=== PATIENT | female | born 1955 ===

== ENCOUNTER 2024-07-09 15:05 | Inpatient (IN) | payer MEDICARE, OTHER ==
[~2024-07-09] VITALS: Ht 162.6 cm; Wt 69.9 kg
[2024-07-09 15:35] VITALS: BP 175/94; TEMP 97.7
[2024-07-09 16:09] VITALS: BP 175/94; TEMP 97.7
[2024-07-10 00:46] VITALS: BP 127/66; TEMP 98; O2SAT 94
[2024-07-10] MEDS ORDERED: APIX5TAB4 PO (01:01)
[2024-07-10] MEDS ORDERED: GABA100C PO (01:49)
[2024-07-10] MEDS ORDERED: LEVO50TA8 PO (01:49)
[2024-07-10] MEDS ORDERED: DICL100G31 TP (01:49)
[2024-07-10] MEDS ORDERED: CHOL100045 PO (01:49)
[2024-07-10] MEDS ORDERED: ANAS1TAB50 PO (01:49)
[2024-07-10] MEDS ORDERED: ATOR40TA PO (01:49)
[2024-07-10] MEDS ORDERED: ASPI81TA31 PO ×2 (01:49)
[2024-07-10] MEDS ORDERED: PRED5DRO4 EACHEYE (01:49)
[2024-07-10] MEDS ORDERED: TIMO5DRO35 EACHEYE (01:49)
[2024-07-10] MEDS ORDERED: OLME20TA13 PO (01:49)
[2024-07-10] MEDS ORDERED: CYAN-51 PO (01:49)
[2024-07-10] MEDS ORDERED: DULO60CA45 PO (01:49)
[2024-07-10] MEDS ORDERED: MAGN400C PO (01:49)
[2024-07-10 05:11] VITALS: BP 159/57; TEMP 98.8; O2SAT 93
[2024-07-10 08:00] VITALS: TEMP 98.1
[2024-07-10] MEDS: HYDROCODONE/APAP 5-325MG TABLET PO PRN (08:22)
[2024-07-10] MEDS: ANASTROZOLE 1 MG TABLET PO SCH ×2 (09:00→20:23)
[2024-07-10] MEDS: prednisoLONE ACET 1% OPHT DROP 5 ML BOTTLE EACHEYE SCH (09:00)
[2024-07-10] MEDS ORDERED: Medication Not On Formulary EA (Olmesartan Medoxomil (Benicar) 20 MG) PO SCH (09:00)
[2024-07-10] MEDS: MAGNESIUM OXIDE 400 MG TABLET PO SCH ×2 (09:00→20:18)
[2024-07-10] MEDS ORDERED: APIXABAN 10 MG PO SCH (09:00)
[2024-07-10] MEDS: CYANOCOBALAMIN 1,000 MCG TABLET PO SCH (09:44)
[2024-07-10] MEDS: GABAPENTIN 100 MG CAPSULE PO SCH (09:44)
[2024-07-10] MEDS: ASPIRIN 81 MG TAB.CHEW PO SCH (09:44)
[2024-07-10] MEDS: LOSARTAN POTASSIUM 50 MG TABLET PO SCH (09:45)
[2024-07-10] MEDS: LEVOTHYROXINE SODIUM 50 MCG TABLET PO SCH (09:46)
[2024-07-10] MEDS: DULOXETINE 60 MG CAPSULE.DR PO SCH (09:54)
[2024-07-10] MEDS: APIXABAN 5 MG TABLET PO SCH (12:14)
[2024-07-10 16:40] VITALS: TEMP 97.9
[2024-07-10 20:00] VITALS: BP 137/42; TEMP 98.1; O2SAT 95
[2024-07-10] MEDS: ATORVASTATIN 40 MG TABLET PO SCH (20:16)
[2024-07-11] MEDS: HYDROCODONE/APAP 5-325MG TABLET PO PRN (00:07)
[2024-07-11 06:00] VITALS: TEMP 98
[2024-07-11 07:49] VITALS: BP 142/74; TEMP 98.8; O2SAT 96
[2024-07-11 08:52] LABS: BASOPHILS # (AUTO) 0.1 K/UL (0.0-0.2); DIFFERENTIAL COMMENT 1; EOSINOPHILS # (AUTO) 0.2 K/uL (0.0-0.7); EOSINOPHILS % (AUTO) 3.9 % (0.0-7.0); HEMATOCRIT 27.6 % (31.2-41.9); HEMOGLOBIN 9.2 g/dL (10.9-14.3); LYMPHOCYTES # (AUTO) 1.5 K/uL (0.8-4.8); LYMPHOCYTES % (AUTO) 26.8 % (20.5-51.5); MEAN CORPUSCULAR HEMOGLOBIN 29.5 uug (24.7-32.8); MEAN CORPUSCULAR HGB CONC 33 g/dL (32.3-35.6); MEAN CORPUSCULAR VOLUME 88.9 fL (75.5-95.3); MONOCYTES # (AUTO) 0.5 K/uL (0.1-1.30); MONOCYTES % (AUTO) 8.3 % (0.0-11.0); NEUTROPHILS # (AUTO) 3.3 K/uL (1.8-8.9); PLATELET COUNT (AUTO) 352 K/uL (179-408); RED CELL DISTRIBUTION WIDTH 14.5 % (12.3-17.7); WHITE BLOOD COUNT (AUTO) 5.6 K/uL (3.8-11.8)
[2024-07-11 09:15] LABS: ALANINE AMINOTRANSFERASE 136 U/L (14-59); ALBUMIN 2.7 g/dL (3.4-5.0); ALKALINE PHOSPHATASE 260 U/L (50-136); ASPARTATE AMINOTRANSFERASE 137 U/L (15-37); BILIRUBIN,TOTAL 0.8 mg/dL (0.2-1.0); CALCIUM 8.9 mg/dL (8.5-10.1); CARBON DIOXIDE 28 mmol/L (21-32); CHLORIDE 105 mmol/L (98-107); CREATININE 0.8 mg/dL (0.6-1.3); GLUCOSE 162 mg/dL (74-106); MAGNESIUM 2.1 mg/dL (1.8-2.4); PHOSPHOROUS 4.6 mg/dL (2.5-4.9); POTASSIUM 4.3 mmol/L (3.5-5.1); SODIUM SERUM 141 mmol/L (136-145); TOTAL PROTEIN, SERUM 6.6 g/dL (6.4-8.2); UREA NITROGEN, BLOOD 9 mg/dL (7-18)
[2024-07-11] MEDS: TIMOLOL MALEATE 0.5% OPHT DROP 5 ML BOTTLE EACHEYE SCH (12:55)
[2024-07-11 16:02] VITALS: BP 125/49; TEMP 97.9; O2SAT 98
[2024-07-11] MEDS: ACETAMINOPHEN 325 MG TABLET PO PRN (16:24)
[2024-07-11 20:00] VITALS: BP 134/74; TEMP 98; O2SAT 97
[2024-07-11] MEDS ORDERED: NALOXONE HCL 0.4 MG/ML AMPUL IV PRN (23:30)
[2024-07-12 06:00] VITALS: BP 161/65; TEMP 97.8; O2SAT 95
[2024-07-12 07:18] VITALS: TEMP 98
[2024-07-12 08:29] VITALS: BP 149/55; TEMP 97.7; O2SAT 93
[2024-07-12] MEDS: OXYCODONE HCL 10 MG TAB.SR.12H PO SCH (09:19)
[2024-07-12 16:30] VITALS: BP 124/53; TEMP 98.1; O2SAT 99
[2024-07-12 21:08] VITALS: BP 121/47; TEMP 98.2; O2SAT 98
[2024-07-13 06:11] VITALS: BP 137/55; TEMP 97.9; O2SAT 97
[2024-07-13 07:40] VITALS: BP 131/56; TEMP 97.2; O2SAT 97
[2024-07-13 15:58] VITALS: BP 125/44; TEMP 97.3; O2SAT 97
[2024-07-13 20:27] VITALS: BP 143/52; TEMP 98.1; O2SAT 95
[2024-07-14 06:02] VITALS: BP 123/48; TEMP 97.9; O2SAT 95
[2024-07-14 08:00] VITALS: BP 132/56; TEMP 98.8; O2SAT 96
[2024-07-14 17:00] VITALS: BP 123/53; TEMP 97.8; O2SAT 96
[2024-07-14 19:25] VITALS: BP 115/47; TEMP 98.1; O2SAT 95
[2024-07-15 07:07] VITALS: BP 160/68; TEMP 97.9; O2SAT 98
[2024-07-15 08:00] VITALS: TEMP 97.9
[2024-07-15 17:07] VITALS: BP 106/44; TEMP 97.9; O2SAT 95
[2024-07-15] MEDS ORDERED: APIXABAN 2.5 MG TABLET PO SCH (21:00)
[2024-07-15] MEDS: BISACODYL 5 MG TABLET.DR PO PRN (21:53)
[2024-07-15] MEDS: APIXABAN 5 MG TABLET PO SCH (21:56)
[2024-07-15 22:17] VITALS: BP 140/56; TEMP 98.5; O2SAT 92
[2024-07-16 06:47] VITALS: BP 128/60; TEMP 98.8; O2SAT 93
[2024-07-16 07:51] VITALS: BP 120/53; TEMP 97.5; O2SAT 99
[2024-07-16 08:35] LABS: BASOPHILS # (AUTO) 0.1 K/UL (0.0-0.2); BASOPHILS % (AUTO) 0.9 % (0.0-2.0); EOSINOPHILS # (AUTO) 0.1 K/uL (0.0-0.7); EOSINOPHILS % (AUTO) 2.2 % (0.0-7.0); HEMATOCRIT 27.2 % (31.2-41.9); HEMOGLOBIN 9.2 g/dL (10.9-14.3); LYMPHOCYTES # (AUTO) 1.9 K/uL (0.8-4.8); LYMPHOCYTES % (AUTO) 28.7 % (20.5-51.5); MEAN CORPUSCULAR HGB CONC 34 g/dL (32.3-35.6); MEAN CORPUSCULAR VOLUME 88.9 fL (75.5-95.3); MONOCYTES # (AUTO) 0.6 K/uL (0.1-1.30); MONOCYTES % (AUTO) 9.7 % (0.0-11.0); NEUTROPHILS # (AUTO) 3.9 K/uL (1.8-8.9); NEUTROPHILS % (AUTO) 58.5 % (38.5-71.5); PLATELET COUNT (AUTO) 479 K/uL (179-408); RED BLOOD CELL COUNT(AUTO) 3.06 MIL/uL (3.63-4.92); RED CELL DISTRIBUTION WIDTH 15.4 % (12.3-17.7); WHITE BLOOD COUNT (AUTO) 6.6 K/uL (3.8-11.8)
[2024-07-16 08:46] LABS: DIFFERENTIAL COMMENT 1
[2024-07-16 10:34] LABS: ALANINE AMINOTRANSFERASE 42 U/L (14-59); ALBUMIN 2.8 g/dL (3.4-5.0); ALKALINE PHOSPHATASE 242 U/L (50-136); ASPARTATE AMINOTRANSFERASE 19 U/L (15-37); BILIRUBIN,TOTAL 0.6 mg/dL (0.2-1.0); CALCIUM 9.1 mg/dL (8.5-10.1); CARBON DIOXIDE 30 mmol/L (21-32); CHLORIDE 102 mmol/L (98-107); GLUCOSE 113 mg/dL (74-106); MAGNESIUM 2.5 mg/dL (1.8-2.4); PHOSPHOROUS 5.9 mg/dL (2.5-4.9); POTASSIUM 4.4 mmol/L (3.5-5.1); SODIUM SERUM 141 mmol/L (136-145); TOTAL PROTEIN, SERUM 6.8 g/dL (6.4-8.2); UREA NITROGEN, BLOOD 21 mg/dL (7-18)
[2024-07-16 19:51] VITALS: BP 113/50; TEMP 97.5; O2SAT 95; O2SAT 99
[2024-07-17 06:11] VITALS: BP 132/51; TEMP 98.4; O2SAT 96
[2024-07-17 08:28] VITALS: BP 152/58; TEMP 98; O2SAT 98
[2024-07-17 16:04] VITALS: BP 111/44; TEMP 97.9; O2SAT 96
[2024-07-17 20:18] VITALS: BP 122/68; TEMP 98.3; O2SAT 77
[2024-07-18 06:38] VITALS: BP 128/64; TEMP 97.8; O2SAT 77
[2024-07-18 08:00] VITALS: BP 146/50; TEMP 97.9
[2024-07-18] MEDS: CALCIUM CARB/VITAMIN D 600-400 MG TABLET PO SCH (21:12)
[2024-07-18 23:49] VITALS: BP 117/52; TEMP 97.8; O2SAT 94
[2024-07-19 06:09] VITALS: BP 147/54; TEMP 97.6; O2SAT 96
[2024-07-19 08:00] VITALS: BP 149/61; O2SAT 94
[2024-07-19 16:21] VITALS: BP 135/53; TEMP 98.5; O2SAT 96
[2024-07-19 20:00] VITALS: BP 117/45; TEMP 98.2; O2SAT 98
[2024-07-20 05:00] VITALS: BP 145/59; TEMP 98; O2SAT 95
[2024-07-20 08:00] VITALS: BP 161/69; O2SAT 97
[2024-07-20 17:00] VITALS: BP 124/54; O2SAT 96
[2024-07-20 19:28] VITALS: BP 118/56; TEMP 98.2; O2SAT 93
[2024-07-21 05:20] VITALS: BP 126/61; TEMP 98.1; O2SAT 96
[2024-07-21 08:00] VITALS: BP 143/68; TEMP 98; O2SAT 94
[2024-07-21 16:14] VITALS: BP 111/43; TEMP 98.2; O2SAT 95
[2024-07-21 21:52] VITALS: BP 120/55; TEMP 98.3; O2SAT 95
[2024-07-22 06:28] VITALS: BP 150/73; TEMP 98.1; O2SAT 97
[2024-07-22 08:29] VITALS: BP 159/67; TEMP 97.9; O2SAT 98
[2024-07-22 16:11] VITALS: BP 124/59; TEMP 98.1; O2SAT 98
[2024-07-22 21:39] VITALS: BP 125/54; TEMP 97.6; O2SAT 99
[2024-07-23 07:09] VITALS: BP 136/60; TEMP 98; O2SAT 91
[2024-07-23 08:00] VITALS: BP 151/55; TEMP 97.6; O2SAT 97
[2024-07-23 08:48] VITALS: BP 151/55
== END 2024-07-23 14:27 | disposition home health service (06) | DRG 559 ==
PROVIDERS: ADMIT Physical Medicine & Rehabilitation Pain Medicine; ATTEND Physical Medicine & Rehabilitation Pain Medicine
DX: S72.142D Displaced intertrochanteric fracture of left femur, subsequent encounter for closed fracture with routine healing (principal); G92.8 Other toxic encephalopathy; I26.99 Other pulmonary embolism without acute cor pulmonale; I82.402 Acute embolism and thrombosis of unspecified deep veins of left lower extremity; N39.0 Urinary tract infection, site not specified; S72.092D Other fracture of head and neck of left femur, subsequent encounter for closed fracture with routine healing; W18.30XD Fall on same level, unspecified, subsequent encounter; E03.9 Hypothyroidism, unspecified; E78.5 Hyperlipidemia, unspecified; D64.89 Other specified anemias; I10 Essential (primary) hypertension; Z85.3 Personal history of malignant neoplasm of breast; E11.40 Type 2 diabetes mellitus with diabetic neuropathy, unspecified; R09.02 Hypoxemia; Z79.01 Long term (current) use of anticoagulants; Z79.811 Long term (current) use of aromatase inhibitors; T39.8X5A Adverse effect of other nonopioid analgesics and antipyretics, not elsewhere classified, initial encounter; Y92.230 Patient room in hospital as the place of occurrence of the external cause
CPT/HCPCS: 36415; 73502; 83735; 84100; 85025; 97535-GO-CO; A4663; A6209; J2650